=== PATIENT | male | born 1955 | race Caucasian/White ===

== ENCOUNTER 2016-08-09 10:33 | Inpatient (IN) | payer OTHER ==
[2016-08-09] MEDS ORDERED: DECADRON IV ONE (10:49)
[2016-08-09] MEDS ORDERED: DUONEB (A & A) INH ONE (10:49)
--- NOTE | 2016-08-09 11:08 | PROVIDER DOCUMENTATION ---
HPI-Respiratory General - General Chief Complaint: Shortness of Breath Stated Complaint: WEAKNESS/SOB/COPD Time Seen by Provider: 08/09/16 10:40 Source: patient, family (daughter) Allergies/Adverse Reactions: Patient Allergies Allergy/AdvReac Type Severity Reaction Status Date / Time morphine AdvReac Unknown Unknown Verified 08/04/16 09:26 Home Medications: Albuterol Sulfate 2.5 mg INH PRN PRN 08/06/15 Budesonide/Formoterol Inhaler [Symbicort 160/4.5 Microgm Inhaler] 1 puff INH PRN PRN 08/06/15 Esomeprazole [Nexium] 40 mg PO DAILY 08/06/15 Gabapentin 300 mg PO TID PRN 08/06/15 Hydrocodone/Acetaminophen [[place] 10-325 Tablet] 1 tab PO Q4HR 08/06/15 ROSUVAstatin [Crestor] 10 mg PO QHS 08/06/15 Tramadol [Ultram] 50 mg PO DAILY 08/06/15 Valsartan [Diovan] 40 mg PO DAILY 08/06/15 Lorazepam [Ativan] 1 mg PO BID 11/19/15 Citalopram [Celexa] 20 mg PO DAILY 06/29/16 Nebivolol [Bystolic] 5 mg PO DAILY 06/29/16 - History of Present Illness-Resp Nature of Presenting Problem: Pt is 61 y/o M presents to the ED with SOB and generalized weakness. Pt's daughter states that Pt was admitted Aug 04 for lesions on the brain. Pt's daughter states Pt has been very weak and confused lately. Pt's daughter states Pt has an appointment in [place] August 16 for lesions on brain. Pt's refused pain meds. Quality of Pain: reports: other (weakness) Severity in ED: reports: mild Onset/Duration: reports: just prior to arrival Timing: reports: still present, intermittent Exposure: reports: unknown cause Cough Quality/Degree: reports: moderate Current Respiratory Medication Therapy: Initiated see nurses note Modifying Factors: improves with: nothing Associated Symptoms: reports: shortness of breath, wheezing. denies: cough, fever/chills, headache, hurts to breathe, nasal congestion Similar Symptoms Previously?: Yes Recently seen or treated by another doctor?: Yes Review of Systems - Adult - REVIEW OF SYSTEMS - ADULT Constitutional: denies: chills, fever Eyes: denies: blurred vision, double vision Ears, Nose, Mouth & Throat: denies: ear pain, nose pain, throat pain Cardiovascular: denies: chest pain, heart murmur, irregular heart rate Respiratory: reports: shortness of breath, wheezing. denies: cough Gastrointestinal: denies: abdominal pain, diarrhea, nausea, vomiting Genitourinary: denies: dysuria, hematuria Musculoskeletal: denies: bone pain, joint pain, neck pain Integumentary: denies: hives, itching Neurological: denies: dizziness/vertigo, headache/migraines Psychiatric: reports: no symptoms reported Endocrine: reports: no symptoms reported Hematologic/Lymphatic: reports: no symptoms reported Allergic/Immunologic: reports: no symptoms reported All Other Systems: Reviewed and Negative Past History - Adult - PAST MEDICAL HISTORY-ADULT Review of Records: reports: Nursing Assessment Review, Medications Reviewed, Social history reviewed & non-contributory. Major Childhood Illnesses: reports: denies history Cardiovascular: reports: cardiac disease, CHF, HTN, hyperlipidemia Respiratory: reports: asthma, COPD Gastrointestinal: reports: GERD Obstetrical/Gynecological: reports: denies history Genitourinary: reports: denies history Musculoskeletal: reports: chronic pain (back and hip) Neurological: reports: denies history Psychiatric: reports: anxiety Endocrine/Immune: reports: denies history Other Conditions: reports: denies history - PRIOR SURGERIES/PROCEDURES Surgical/Procedure History: reports: hernia repair - IMMUNIZATION STATUS Childhood Immunizations: See Nurse Assessment Flu Vaccine: See Nurse Assessment - FAMILY HISTORY Family History: reviewed, not pertinent - SOCIAL HISTORY Smoking: cigarettes, greater than 1 pack/day Provider spent 3-5 mins advising pt. on dangers of tobacco.: Discussed manners to quit use, and f/u contacts for add'l counseling. Substance Use: denies Living Situation: family Physical Exam-General - PHYSICAL EXAM-ADULT Initial Vital Signs Reviewed: Yes - CONSTITUTIONAL General Appearance: appears well, alert, no apparent distress, slow to respond - EYES Eyes: PERRL/EOMI, pink conjunctivae - HEAD, EARS, NOSE, MOUTH & THROAT HENMT: normocephalic/atraumatic, moist mucous membranes, normal ENT inspection - NECK Neck: non-tender, full range of motion, supple, normal inspection - RESPIRATORY Respiratory: chest non-tender, lungs clear, normal breath sounds, wheezing - CARDIOVASCULAR Cardiovascular: normal peripheral pulses, regular rate, rhythm, no edema - GASTROINTESTINAL (ABDOMEN) Abdominal Exam: normal bowel sounds, non tender, soft - LYMPHATIC Lymphatic: no adenopathy - MUSCULOSKELETAL Back Exam: normal inspection, no CVA tenderness, no vertebral tenderness Extremity: normal range of motion, non-tender, normal gait - SKIN Integumentary: normal color, normal turgor, warm/dry - NEUROLOGIC Neurologic: peg driver II-XII nml as tested, grossly normal, no motor/sensory deficits - PSYCHIATRIC Psych/Mental Status: normal mood/affect, normal thought content, normal thought process, oriented x 3 Progress - PLAN OF CARE/RESULTS Progress/Plan/Lab Results: Orders Category Date Time Status IV Insertion ORDERED Care 08/09/16 10:49 Completed HEAD W/WO CONTRAST [CT] Stat Exams 08/09/16 10:49 Ordered CBC WITH DIFF [HEME] Stat Lab 08/09/16 10:50 Results COMPREHENSIVE METABOLIC PANEL [CHEM] Stat Lab 08/09/16 10:[address] W/POSS RFLX CULT [URINALYSIS] Stat Lab 08/09/16 10:49 Uncollected Albuterol 2.5MG/Ipratrop 0.5MG [Duoneb (A & A)] Med 08/09/16 10:49 Discontinued 9 ml INH NOW ONE Dexamethasone [Decadron] Med 08/09/16 10:49 Discontinued 4 mg IV NOW ONE Aerosol Treatments Routine Oth 08/09/16 10:49 Active Aerosol Treatments Stat Oth 08/09/16 10:49 Active Vital Signs - 24 hr 08/09/16 10:55 Temperature 98.4 F Pulse Rate 73 Respiratory 17 Rate Blood Pressure 141/81 O2 Sat by Pulse 95 Oximetry Laboratory Tests 08/09/16 08/09/16 10:50 10:50 WBC 26.08 H RBC 4.53 L Hgb 13.3 L Hct 40.4 L MCV 89.2 MCH 29.4 MCHC 32.9 L RDW Std Deviation 14.6 H Plt Count 509 H MPV 8.8 Immature Gran % (Auto) 0.5 Neut % (Auto) 89.9 H Lymph % (Auto) 3.3 L Phelps % (Auto) 6.3 Eos % (Auto) 0.0 Baso % (Auto) 0.0 Immature Gran # (Auto) 0.12 H Neut # 23.46 H Lymph # 0.85 L Phelps # 1.63 H Eos # 0.01 Baso # 0.01 Segmented Neutrophils 93 H Lymphocytes 3 L Monocytes 4 Sodium 136 Potassium 3.4 L Chloride 96 L Carbon Dioxide 32 Anion Gap 9 BUN 16 Creatinine 0.6 L Estimated GFR/1.73 m2 > 60 BUN/Creatinine Ratio 27 Glucose 132 H Calculated Osmolality 275 Calcium 9.5 Total Bilirubin 0.20 AST 8 L ALT 19 Alkaline Phosphatase 72 Total Protein 6.8 Albumin 3.6 Globulin 3.0 Albumin/Globulin Ratio 1.0 - CT/MRI 1 CT Study: Head Impression: Abnormal (multiple subtle mass lesions with substanial surounding edema, most prominent on R; some increase in edema on R compared to 08/04/16; considerations include metastases, multifocal glioma, and possibly unusual infectious process; no hemorrhage.) - CONSULTS/PCP/HOSPITALIST Notification #1 *Consult/PCP/Hospitalist*: Dr. Giraldo Time Discussed: 13:32 (Dr. Giraldo states admit to [facility], treat COPD and do a cancer workup) Reason/Comments: Dr. Bell consulted with Dr. Giraldo about admit of Pt Consult Disposition: Admit #2 Consult: Dr. Kidd Time Discussed: 13:38 (Dr. Kidd accepted admit. ) Reason/Comments: Dr. Bell consults with Dr. Kidd about admit of Pt. Departure - Departure Time of Disposition Order: 13:51 DIAGNOSIS: Altered mental status Qualifiers: Altered mental status type: unspecified Qualified Code(s): R41.82 - Altered mental status, unspecified Disposition: HOME 01 Certified Medical Emergency: Emergent Condition: Stable Additional Instructions: ED Follow Up Instructions: You have been treated by a care provider in the Emergency Department. These instructions are being provided to you so you can have an understanding of how to care for yourself upon discharge. Upon discharge from the Emergency Department, you are responsible for making arrangements for follow-up care by a physician of your choice. Take all prescribed medications as directed. Return to the Emergency Department immediately for any new or worsening symptoms. You may call the Physician Referral phone number at [phone] to obtain a list of Physicians who are taking new patients. Referrals: Rafa Mcintosh MD [Primary Care Provider] - Attestation - Scribe Verification/Attestation Scribe:: Porsha Viveros Acting as Scribe for:: Kristin Bell Scribe documention review:: This chart was documented by a scribe and accurately reflects the service the provider performed and the decisions made by the provider.
[2016-08-09 11:27] LABS: AGAP 9; ALBUMIN 3.6 g/dL (3.5-5.0); ALKALINE PHOSPHATASE 72 U/L (32-122); BUN 16 mg/dL (8-22); CALCIUM 9.5 mg/dL (8.8-10.2); CHLORIDE 96 mmol/L (98-107); COSMO 275; GOT 8 U/L (10-34); GPT 19 U/L (10-44); POTASSIUM 3.4 mmol/L (3.5-5.1); SODIUM 136 mmol/L (136-145); TCO2 32 mmol/L (25-35); TOTAL PROTEIN 6.8 g/dL (6.3-8.3)
[2016-08-09 11:54] LABS: EOS# 0.01 X1000 (0.0-0.7); HEMATOCRIT 40.4 % (42.0-52.0); HEMOGLOBIN 13.3 g/dL (14.0-18.0); IMM GRAN# 0.12 X1000 (0.0-0.04); IMM GRAN% 0.5 % (0.0-0.5); LYMPH# 0.85 X1000 (1.2-3.4); LYMPH% 3.3 % (20.5-51.1); MANUAL DIFF NEEDED? YES; MCH 29.4 PG (27-31); MCHC 32.9 g/dL (33-37); MCV 89.2 FL (81-99); MONO# 1.63 X1000 (0.11-0.59); MONO% 6.3 % (1.7-9.3); MPV 8.8 FL (7.4-10.4); NEUT% 89.9 % (42.2-75.2); PLT 509 X1000 (130-400); RBC 4.53 XMIL (4.7-6.1)
[2016-08-09 11:56] LABS: LYMPHS 3 % (21-51); MONO 4 % (1-9)
--- NOTE | 2016-08-09 13:14 | Diag Imaging Result Document ---
PROCEDURE NAME: HEAD W/WO CONTRAST - 08/09/2016 CT HEAD WITHOUT AND WITH CONTRAST: TECHNIQUE: Images are obtained prior to and following intravenous contrast administration. A dose reduction protocol was used. Compared with 07/25/2016. FINDINGS: There are multiple subtle mass lesions with faint ring enhancement with associated edema. These are most prominent in the right cerebrum, and there is substantially more edema on the right than on the left. There has been some increase in the amount of edema on the right with increased sulcal effacement and increased mass effect on the right lateral ventricle. There is no substantial midline shift identified at this time. There is no substantial effacement of basilar cisterns at this time, although there is possibly some mild mass effect on the right side of the suprasellar cistern. Considerations include metastatic disease, multifocal gliomas, and possibly unusual infectious process. There is no evidence of hemorrhage. There is no hydrocephalus. IMPRESSION: Multiple subtle mass lesions with subtle ring enhancement and substantial associated edema, most numerous on the right. There has been some increase in edema on the right compared with the 08/04/2016 exam. Considerations include metastatic disease, multifocal gliomas, and possibly unusual infectious process. [facility]
[2016-08-09] MEDS ORDERED: VANCOMYCIN 1 GM/NS 250 ML IV ONE (13:17)
[2016-08-09] MEDS ORDERED: GENTAMICIN 80 MG/NS 50 ML IV ONE (13:17)
[2016-08-09 13:34] LABS: URINE CULTURE PL NEEDED? NO; URINE SOURCE CLEAN CATCH
[2016-08-09 13:44] LABS: BILIRUBIN URINE NEGATIVE (NEGATIVE); BLOOD URINE 1+ (NEGATIVE); CLARITY CLEAR (CLEAR); COLOR YELLOW; GLUCOSE URINE NEGATIVE (NEGATIVE); LEUKOCYTES URINE TRACE (NEGATIVE); NITRITE URINE NEGATIVE (NEGATIVE); PROTEIN URINE TRACE mg/dL (NEGATIVE); UROBILINOGEN URINE NORMAL
[2016-08-09 13:45] LABS: URINE EPITHELIAL CELLS <10 /HPF (<10); URINE RBC <10 /HPF (<10); URINE WBC <10 /HPF (<10)
[2016-08-09] MEDS ORDERED: DECADRON IV SCH (13:45)
--- NOTE | 2016-08-09 14:13 | Diag Imaging Result Document ---
PROCEDURE NAME: CHEST-PORTABLE - 08/09/2016 PORTABLE CHEST X-RAY: COMPARISON: 08/04/2016. FINDINGS: Stable mild cardiomegaly. Stable right perihilar infiltrate. There is slight worsening in the right lower lobe infiltrate. The left lung remains grossly clear. IMPRESSION: Slight worsening in the right basilar infiltrate.
[2016-08-09] MEDS ORDERED: NORCO-10 PO ONE (14:27)
--- NOTE | 2016-08-09 16:12 | Diag Imaging Result Document ---
PROCEDURE NAME: MRI BRAIN W W/O CONTRAST - 08/09/2016 MRI BRAIN WITH AND WITHOUT: TECHNIQUE: Axial, sagittal, and coronal images were obtained in multiple sequences. These were followed by postcontrast axial and coronal images. COMPARISON: Comparison is made to recent brain CTs. FINDINGS: There are multiple large bilateral peripheral enhancing masses. The largest is in the right occipital lobe measuring 5 cm in diameter. Each of these has a moderate amount of surrounding edema. There is effacement of the sulci in the right cerebral hemisphere. There is only mild midline shift from the right to the left in the mid line of approximately 5 to 6 mm. There is compression upon the right lateral ventricle. No lesion within the brain stem or cerebellum. No epidural or subdural fluid collection. IMPRESSION: Multiple peripherally enhancing masses bilaterally although these are more numerous on the right most likely representing metastases. Other less likely possibilities would be multiple gliomas or an infectious process. [facility]
[2016-08-09] MEDS: DECADRON IV SCH (17:25)
[2016-08-09] MEDS: DILAUDID IV PRN ×2 (17:25→22:41)
[2016-08-09] MEDS ORDERED: COMBIVENT RESPIMAT INHALER INH PRN (19:17)
[2016-08-09] MEDS ORDERED: ZOFRAN IV PRN (19:19)
[2016-08-09] MEDS: DUONEB (A & A) INH SCH ×2 (19:42→22:47)
--- NOTE | 2016-08-09 19:43 | HISTORY AND PHYSICAL ---
PRIMARY CARE PHYSICIAN: Rafa Mcintosh MD CHIEF COMPLAINT: Headache, dizziness, and unsteady gait. HISTORY OF PRESENT ILLNESS: This is a 61-year-old male with a prior history of COPD, hypertension, and tobacco use, who presented to the emergency room complaining of increasing headache unrelieved by home pain medications, unsteady gait, change in vision. He was evaluated in the emergency room on 08/04/2016 and at that time a CT of the head was performed, which revealed numerous brain masses compatible with metastasis with no midline shift. He was discharged from the emergency room with an appointment to follow up with [facility] in [place], but over the last 48 hours he has had a significant change in gait, as well as coordination, having difficulty even feeding himself. His vision has changed. The sister states that he can see large objects, but that he is tripping over smaller things. He has developed a headache that has been present for about 2 days now, and he has become light sensitive and started to have some nausea. A CT of the head in the emergency room revealed multiple subtle mass lesions with subtle ring enhancement and substantial associated edema, most numerous on the right, with an increase in the edema compared with the 08/04/2016 exam. MRI of the brain revealed multiple peripherally enhancing masses bilaterally, more numerous on the right, with approximately 5 to 6 mm shift from the right to the left in the midline with compression upon the right lateral ventricle. There is no lesion within the brainstem or cerebellum. No epidural or subdural fluid collection. He is being admitted for further evaluation and treatment. PAST MEDICAL HISTORY: COPD, hypertension, gastroesophageal reflux disease, congestive heart failure, hyperlipidemia, chronic back pain, chronic hip pain, abdominal hernia, and metastatic brain lesions. PAST SURGICAL HISTORY: Abdominal hernia repair and colonoscopy. SOCIAL HISTORY: He is disabled due to lung disease. He does live alone. He has sisters that live close by. ALLERGIES: Morphine. HOME MEDICATIONS: A list will be obtained. REVIEW OF SYSTEMS: A 14-point review systems is discussed with patient and the sister with pertinent positives stated in the HPI. He denies chest pain, palpitations, syncope, vomiting, diarrhea, constipation, black or bloody vomitus, black or bloody stools, hematuria, dysuria, frequency, urgency. PHYSICAL EXAMINATION: GENERAL: This is a 61-year-old male who is lying in the bed. He does appear older than his stated age. VITAL SIGNS: Blood pressure is 150/61 with a heart rate of 84, respirations are 20, temperature is 98.2 degrees orally with oxygen saturation of 96% to 97% on 2 liters nasal cannula. HEENT: Head is normocephalic, atraumatic. Pupils equal, round, react to light. EOMs are intact. Sclerae anicteric. Mucous membranes are dry. NECK: Supple. Trachea midline. CARDIOVASCULAR: Regular rate and rhythm. S1 and S2 appreciated. PULMONARY: He does have wheezing scattered throughout with no increased work of breathing noted. GASTROINTESTINAL: The abdomen is soft, nontender, nondistended with bowel sounds in all 4 quadrants. BACK: No CVAT. No spine tenderness. MUSCULOSKELETAL: Good range of motion of the joints. SKIN: Warm and dry. NEUROLOGIC: He is alert and oriented. He is lying in a dark room at present due to a headache. Speech is clear. [employer] are equal. He does have 4/5 muscle strength x4. LABORATORIES: WBC is 26.08 with hemoglobin 13.3, hematocrit 40.4, and platelets of 509,000. Sodium is 136, potassium 3.4, BUN 16, creatinine 0.6 with a glucose of 132. MRI and CT of the head, as stated in the HPI. ASSESSMENT AND PLAN: 1. Metastatic brain cancer with unknown primary source. The patient's symptoms have progressed significantly over the last week as stated in the History of Present Illness. We did talk to Dr. Carli Giraldo. He will be admitted. We will give IV pain and nausea control. We will order CT abdomen, chest, abdomen and pelvis with contrast for staging. He will be seen by Dr. Giraldo tomorrow. We will consult Dr. Aga Tam for radiation. 2. Chronic obstructive pulmonary disease. We will identify the patient's home medicines and continue. We will give DuoNeb treatments p.r.n. 3. Gastroesophageal reflux disease. Give Protonix. 4. Congestive heart failure. 5. Hyperlipidemia. 6. Chronic back pain. 7. Chronic hip pain. 8. We will identify his home medications and continue as appropriate. Of note, the patient does have home oxygen at 1 liter. Further treatments pending hospital course. Dictated by NAOMIE Guerra for Fletcher Kidd MD based on tobacco hx and evidence of persistent rll infiltrate, there is a concern this is a primary lung tumor, were are in the process of working up his primary tumor site and biopsy sites; will pursue bone scan as well; further orders per workup as above described [facility]
[2016-08-09] MEDS ORDERED: NEURONTIN PO PRN (20:54)
[2016-08-09] MEDS: SYMBICORT 160/4.5 MICROGM INHALER INH SCH (21:06)
[2016-08-09] MEDS: PROTONIX IV SCH (21:30)
[2016-08-09] MEDS: KEPPRA PO SCH (21:30)
[2016-08-10] MEDS: PERCOCET-5 PO PRN ×3 (00:12→19:53)
[2016-08-10] MEDS: DECADRON IV SCH ×5 (00:14→22:08)
[2016-08-10] MEDS: DUONEB (A & A) INH SCH ×3 (03:06→12:00)
[2016-08-10 06:01] LABS: HEMATOCRIT 38.2 % (42.0-52.0); HEMOGLOBIN 12.5 g/dL (14.0-18.0); MCH 29.4 PG (27-31); MCHC 32.7 g/dL (33-37); MCV 89.9 FL (81-99); MPV 8.6 FL (7.4-10.4); RBC 4.25 XMIL (4.7-6.1)
[2016-08-10 06:09] LABS: AGAP 9; BUN 15 mg/dL (8-22); CALCIUM 9.3 mg/dL (8.8-10.2); CHLORIDE 95 mmol/L (98-107); COSMO 272; POTASSIUM 3.6 mmol/L (3.5-5.1); SODIUM 135 mmol/L (136-145); TCO2 31 mmol/L (25-35)
[2016-08-10] MEDS: SYMBICORT 160/4.5 MICROGM INHALER INH SCH (07:45)
[2016-08-10] MEDS: DILAUDID IV PRN ×3 (08:26→22:02)
[2016-08-10] MEDS: NEXIUM PO SCH (08:27)
[2016-08-10] MEDS: KEPPRA PO SCH ×2 (08:27→20:00)
--- NOTE | 2016-08-10 08:57 | Diag Imaging Result Document ---
PROCEDURE NAME: THORAX/ABDOMEN/PELVIS - 08/09/2016 CT CHEST WITH INTRAVENOUS CONTRAST: A CT dose reduction protocol was used. COMPARISON: 08/08/2015. FINDINGS: There is a 2.3 cm perihilar right middle lobe lung mass. There is some mucus plugging of the right middle lobe bronchi. There is ill-defined infiltrate in the right lower lobe along with bronchial wall thickening compatible with bronchitis and bronchopneumonia. There is also some bronchitis on the left side. There is a left perihilar nodule in the upper lobe measuring 12 mm. No significant adenopathy. Heart and great vessels are normal. Bony structures are intact. IMPRESSION: 1. Suspicious bilateral perihilar pulmonary nodules. 2. Significant bronchitis. 3. Bronchopneumonia in the right lower lobe. CT ABDOMEN AND PELVIS WITH INTRAVENOUS CONTRAST: A CT dose reduction protocol was used. COMPARISON: None. FINDINGS: There are cysts in the right kidney and spleen. The liver, gallbladder, pancreas, and adrenals are normal. No bowel obstruction or inflammation. Urinary bladder, prostate, and rectum are normal. Bony structures are intact. IMPRESSION: No acute abnormality. [facility]
[2016-08-10] MEDS: ZOSYN 3.375 GM/NS 50 ML IV SCH ×3 (10:32→22:09)
[2016-08-10] MEDS ORDERED: NS 1,000 ML ONE (10:34)
[2016-08-10] MEDS: MUCOMYST 20% INH SCH (12:00)
[2016-08-10] MEDS ORDERED: DUONEB (A & A) INH PRN (13:20)
[2016-08-10] MEDS ORDERED: DUONEB (A & A) INH ONE (13:30)
--- NOTE | 2016-08-10 15:35 | Diag Imaging Result Document ---
PROCEDURE NAME: BONE SCAN, TOTAL BODY - 08/10/2016 WHOLE BODY BONE SCAN: COMPARISON: None. FINDINGS: 26.9 mCi of MDP was administered. There is no abnormal uptake throughout the skeleton or soft tissues. IMPRESSION: No evidence of skeletal metastatic disease.
--- NOTE | 2016-08-10 16:18 | PROGRESS NOTE ---
DATE: 08/10/2016 SUBJECTIVE: The patient is still confused, still very agitated. He does respond to questions but he has got significant brain pathology. OBJECTIVE: Blood pressure was 163/76, heart rate 63, respiratory rate 20, temperature 97.6 degrees, 99% on room air.Cardiovascular: Regular rate and rhythm. Pulmonary: Bilateral breath sounds. Clear to auscultation. GI: Soft, nontender, nondistended. Bowel sounds are positive. Extremities: No clubbing or cyanosis. Lymphatics: No peripheral edema. Neurological: Nonfocal. LABORATORY DATA: White count is still elevated 21,000. Chemistries look okay. CA is only 2.1. His CT scan though shows a right perihilar mass with pneumonia surrounding. MRI shows significant metastatic lesions in the brain in the frontal process. Body scan was negative for any acute pathology. PROBLEMS: 1. Central nervous system metastases. We will continue high-dose steroids. Dr. Giraldo has increased the dose. I think that is very reasonable and we are pursuing urgent XRT as soon as we can get it set up. He has been evaluated and he is being transferred to [facility] for closer management. 2. Postobstructive pneumonia. Will continue Zosyn and breathing treatments and follow. 3. Primary lung cancer. We will pursue a biopsy as soon as we are able to get everything together which will likely be Saturday at this point.
--- NOTE | 2016-08-10 17:21 | CONSULTATION ---
DATE OF CONSULTATION: 08/10/2016 DICTATED BY: Hasmukh Griggs, radiology oncology physician covering for Dr. Tam, locum coverage. REFERRING PHYSICIAN: Ricci Kidd MD OTHER PHYSICIANS: Medical oncologist, Carli Giraldo. CHIEF COMPLAINT: Headache and confusion. HISTORY OF PRESENT ILLNESS: Mr. Pruitt is a 61-year-old white male with history of smoking, COPD, coronary artery disease, who is currently admitted to hospitalist service after presenting to the emergency department on 08/09 with worsening headache, confusion, and weakness. He initially presented to the ED on 08/04 with a 1 week history of mild headache and confusion. A CT scan of the head at that time demonstrated multiple lesions in the brain concerning for metastatic disease. He also had a chest x-ray that showed nodularity in the right hilum. He was discharged from the ED with prescription for oral dexamethasone and was set up with appointments to see medical oncology with an MRI of the brain and PET scan. Unfortunately, he did not make it his visits after developing worsening confusion and headache over the subsequent week. He also developed new photophobia and worsening weakness. He particularly notes weakness in his right leg. He also notes occasional visual changes. He denies falls, loss of consciousness, or seizures. He does live by himself and has had more difficulty with ambulation. He denies nausea or emesis. His sister and brother were present for the history and corroborate these findings. He is also, of note, on home oxygen for advanced COPD and has noted some mild worsening of his breathing with dyspnea on minimal exertion. There is a cough productive of blood tinged sputum over the past few weeks and has also noted worsening fatigue, loss of energy and appetite with an associated 10-15 pounds weight loss over the past month. PAST MEDICAL HISTORY: COPD on home oxygen 1-2 liters, coronary artery disease, hypertension, depression, hyperlipidemia, chronic pain. PAST SURGICAL HISTORY: He has had repair of an abdominal hernia and a colonoscopy. ALLERGIES: Morphine. HOME MEDICATIONS: Include albuterol inhaler, Symbicort inhaler, Nexium 40 mg p.o. daily, gabapentin 300 mg p.o. t.i.d., [place] 10/325 q.4 p.r.n., rosuvastatin 10 mg q.h.s., tramadol 50 mg daily, valsartan 40 mg daily, lorazepam 1 mg p.o. b.i.d., citalopram 20 mg daily, nebivolol 5 mg daily. He also reports taking dexamethasone since his discharge from the ED 2 weeks ago or a week ago but does not know the exact dose or frequency. FAMILY HISTORY: Both parents have history of lung cancer and are , otherwise no cancer in his family. SOCIAL HISTORY: He lives by himself in [place]. He is currently disabled due to his COPD. He was previously able to care for himself at home. He is a current smoker 1 pack per day. REVIEW OF SYSTEMS: A 14-point review of systems was performed with pertinent positives outlined in HPI. Review of systems was otherwise negative. PHYSICAL EXAMINATION: GENERAL: The patient is awake, alert to person and place. Lies in bed comfortably. VITAL SIGNS ON ADMISSION: Blood pressure 158/61. Heart rate 84. Respirations 20. Temperature 98.2 degrees by mouth. Oxygen saturation 96% on 2 liters by nasal cannula. HEENT: Normocephalic and atraumatic. Anicteric sclerae. Mucous membranes dry. No particular oropharyngeal erythema or masses. Tongue protrudes normally with normal palate elevation. Pupils are equal bilaterally, reactive to light. Extraocular movements will be outlined in the neurological exam. NECK: Supple, nontender. No palpable lymphadenopathy. Trachea is midline. CARDIOVASCULAR: Regular rate and rhythm with normal S1, S2, no murmurs. No significant lower extremity edema. PULMONARY: Diminished breath sounds bilaterally with scattered wheezes throughout. Breathing is nonlabored. No crackles. NEUROLOGICAL: Extraocular movements: The patient has a left lateral gaze palsy, is unable to gaze to the left, there is no nystagmus. He also has some difficulty with upper gaze but is able to perform it intermittently. Cranial nerves are otherwise intact. Exam is somewhat limited but the patient reports grossly normal visual hogue and visual acuity. Motor: The patient appears to have some left-sided neglect. Although with prompting he is able to raise both arms with 3/5 strength bilaterally and symmetric. Lower extremities also have 3/5 strength symmetric. Sensory within normal limits. Cerebellar: The patient has difficulty performing. Nose to finger test: He does demonstrate loss of coordination with extremity movements. IMAGING: All pertinent imaging from this and his previous hospitalizations were reviewed including a CT scan of the head from 08/09/2016 showing multiple enhancing lesions with substantial edema in both cerebral hemispheres. MRI of the brain from 08/09/2016 shows multiple large enhancing masses, largest in the right occipital lobe measuring 5 cm with moderate surrounding edema, effacement of the sulci with mild midline shift. Last is a CT scan of the chest, abdomen, and pelvis from 08/09/2016 which demonstrates a 2.3 cm right middle lobe lung mass with associated bronchial wall thickening and a right lower lobe infiltrate, there is also left perihilar nodularity measuring up to 1.2 cm with no significant lymphadenopathy. ASSESSMENT AND PLAN: Mr. Pruitt is a 61-year-old white male who is currently admitted to the hospital with significant neurologic decline. He has a known history of brain lesions concerning for metastatic disease. Further workup during this hospitalization including an MRI reveals multiple bilateral brain lesions. I reviewed the MRI and note multiple lesions bilaterally particularly a large lesion in the right occipital lobe and 2 very large bifrontal lesions, each with significant surrounding edema and mass effect. There also is somewhat concerning enhancement along meninges. A report of the CT scan of the chest is all that was available for review, but after discussion with the hospitalist team and his oncologist, Dr. Carli Giraldo, we felt that this most likely represented metastatic lung cancer. The patient has not been able to undergo further diagnostic workup for a tissue diagnosis at this point, but given concern of his rapid neurologic decline and the consensus of a most likely diagnosis of lung cancer we discussed with the patient the potential for proceeding with radiation therapy to his brain. I discussed the risks, benefits, side effects of radiation including potential for worsening headache or nausea, darkening or skin irritation, loss of hair. I also discussed this with his sister and brother who are present in his hospital room. We discussed the rationale for the radiation which includes the potential for controlling his intracranial disease and hopefully decreasing his symptoms. We would most likely delivery radiation daily over the course of roughly 2 weeks. After our discussion we agreed to the following plan: 1. The inpatient team has decided to transfer the patient to [facility] for further care. He will continue to be followed by Dr. Giraldo, medical oncology, and will be continued on IV dexamethasone. 2. We recommend increasing dexamethasone, if possible, to 10 mg 4 times a day to possibly stabilize neurological symptoms. 3. We will proceed with radiation treatment planning in first radiation treatment this afternoon. Also plan for second treatment on 08/11/2016.
[2016-08-10] MEDS: PROTONIX IV SCH (22:08)
[2016-08-10] MEDS: SODIUM CHLORIDE 0.9% INJ SCH (22:08)
[2016-08-10 22:29] LABS: URINE CULTURE NEEDED? NO; URINE SOURCE CATH
[2016-08-10 22:30] LABS: BILIRUBIN URINE NEGATIVE (NEGATIVE); BLOOD URINE NEGATIVE (NEGATIVE); COLOR YELLOW; GLUCOSE URINE TRACE mg/dL (NEGATIVE); LEUKOCYTES URINE NEGATIVE (NEGATIVE); NITRITE URINE NEGATIVE (NEGATIVE); PROTEIN URINE TRACE mg/dL (NEGATIVE); SP GRAVITY URINE 1.028; TURBIDITY URINE CLEAR (CLEAR); URINE MICRO REVIEW NEEDED? NO; UROBILINOGEN URINE NORMAL (NORMAL)
[2016-08-10 22:32] LABS: UR EPITHELIAL CELLS <10 /HPF (<10); URINE BACTERIA NEGATIVE /HPF; URINE RBC <10 /HPF (<10); URINE WBC <10 /HPF (<10)
[2016-08-11] MEDS: DILAUDID IV PRN ×5 (00:58→21:28)
[2016-08-11] MEDS: DECADRON IV SCH ×4 (04:47→21:32)
[2016-08-11] MEDS: ZOSYN 3.375 GM/NS 50 ML IV SCH ×4 (04:47→21:33)
[2016-08-11] MEDS: DUONEB (A & A) INH SCH ×8 (04:55→23:21)
[2016-08-11] MEDS: MUCOMYST 20% INH SCH ×3 (04:58→19:47)
[2016-08-11] MEDS: SYMBICORT 160/4.5 MICROGM INHALER INH SCH ×3 (04:58→19:47)
[2016-08-11 06:31] LABS: HEMATOCRIT 38.7 % (42.0-52.0); HEMOGLOBIN 12.7 g/dL (14.0-18.0); MCH 29.8 PG (27-31); MCHC 32.8 g/dL (33-37); MCV 90.8 FL (81-99); MPV 8.6 FL (7.4-10.4); RBC 4.26 XMIL (4.7-6.1)
[2016-08-11 06:50] LABS: AGAP 12; BUN 23 mg/dL (8-22); CHLORIDE 98 mmol/L (98-107); COSMO 283; SODIUM 139 mmol/L (136-145); TCO2 29 mmol/L (25-35)
[2016-08-11] MEDS: NEXIUM PO SCH (09:51)
[2016-08-11] MEDS: KEPPRA PO SCH ×2 (09:51→21:33)
--- NOTE | 2016-08-11 20:35 | PROGRESS NOTE ---
DATE: 08/11/2016 OBJECTIVE: Vital signs: Blood pressure 114/54, heart rate 73, respiratory 22, temperature 98.2 degrees, 94% saturation on 2 L. Cardiovascular: Regular rate and rhythm. Pulmonary: Bilateral breath sounds clear to auscultation. GI: Soft, nontender, nondistended. LABORATORY DATA: White count 13, hemoglobin and hematocrit 12 and 38, platelets of . Chemistry within normal limits. PROBLEMS: 1. Central nervous system metastases. He seems to be doing better after radiation therapy and higher dose steroids. 2. Lung mass, planning for CT-guided biopsy in the next couple days. 3. Postobstructive pneumonia. Continue antibiotics, Mucomyst, breathing treatment and follow. DISPOSITION: Pending resolution of his issues and will continue physical therapy.
[2016-08-11] MEDS: SODIUM CHLORIDE 0.9% INJ SCH (21:32)
[2016-08-11] MEDS: PROTONIX IV SCH (21:33)
[2016-08-12] MEDS: DILAUDID IV PRN (00:27)
[2016-08-12] MEDS: DUONEB (A & A) INH SCH ×6 (03:35→23:27)
[2016-08-12] MEDS: DECADRON IV SCH ×4 (03:38→22:18)
[2016-08-12] MEDS: ZOSYN 3.375 GM/NS 50 ML IV SCH ×4 (03:38→22:16)
[2016-08-12 07:13] LABS: AGAP 13; BUN 24 mg/dL (8-22); CALCIUM 8.7 mg/dL (8.8-10.2); CHLORIDE 95 mmol/L (98-107); COSMO 281; POTASSIUM 3.9 mmol/L (3.5-5.1); SODIUM 137 mmol/L (136-145); TCO2 29 mmol/L (25-35)
[2016-08-12] MEDS: MUCOMYST 20% INH SCH ×2 (07:31→19:55)
[2016-08-12] MEDS: SYMBICORT 160/4.5 MICROGM INHALER INH SCH ×2 (07:31→19:55)
[2016-08-12 07:54] LABS: BASO% 0.1 % (0.0-0.8); HEMATOCRIT 39.5 % (42.0-52.0); HEMOGLOBIN 13.2 g/dL (14.0-18.0); IMM GRAN# 0.17 X1000 (0.0-0.04); IMM GRAN% 1.2 % (0.0-0.5); LYMPH# 0.69 X1000 (1.2-3.4); LYMPH% 4.8 % (20.5-51.1); MANUAL DIFF NEEDED? YES; MCH 29.5 PG (27-31); MCHC 33.4 g/dL (33-37); MCV 88.4 FL (81-99); MONO# 0.76 X1000 (0.11-0.59); MONO% 5.3 % (1.7-9.3); MPV 8.6 FL (7.4-10.4); NEUT% 88.6 % (42.2-75.2); PLT 496 X1000 (130-400); RBC 4.47 XMIL (4.7-6.1)
[2016-08-12 08:01] LABS: LYMPHS 6 % (21-51); MONO 2 % (1-9)
[2016-08-12] MEDS: PERCOCET-5 PO PRN ×4 (08:29→22:11)
[2016-08-12] MEDS: NEXIUM PO SCH (08:30)
[2016-08-12] MEDS: KEPPRA PO SCH ×2 (08:30→22:17)
--- NOTE | 2016-08-12 22:03 | PROGRESS NOTE ---
DATE: 08/12/2016 SUBJECTIVE: Patient has no focal complaints. Every day his mentation is improving. His neurological status is improving, just overall much improved OBJECTIVE: Vital signs: Blood pressure is 133/58, heart rate 95, respiratory rate 20, temperature 98.7 degrees, 97% on 2 L. Cardiovascular: Regular rate and rhythm. Pulmonary: Bilateral breath sounds. Clear to auscultation. GI: Soft, nontender, nondistended. Bowel sounds are positive. Extremities: No clubbing or cyanosis. Lymphatics: No peripheral edema. Neurological: Nonfocal. LABORATORY DATA: Normal basic, normal white count 14,000 still. PROBLEM LIST: 1. Central nervous system metastases. He is getting steroids and XRT. I greatly appreciate radiation oncology's urgent treatment. Continue treatments. 2. Postobstructive pneumonia. He is on Mucomyst, Zosyn and breathing treatments. Seems to be doing well. 3. Lung mass. We are awaiting biopsy on Saturday. 4. Disposition. He may end up needing rehab. We will continue to follow and evaluate for issues.
[2016-08-12] MEDS: ATIVAN PO SCH (22:11)
[2016-08-12] MEDS: PROTONIX IV SCH (22:18)
[2016-08-12] MEDS: SODIUM CHLORIDE 0.9% INJ SCH (22:18)
[2016-08-13] MEDS: ATIVAN PO SCH ×4 (04:00→21:31)
[2016-08-13] MEDS: ZOSYN 3.375 GM/NS 50 ML IV SCH ×5 (04:31→21:32)
[2016-08-13] MEDS: DECADRON IV SCH ×5 (04:31→21:31)
[2016-08-13] MEDS: DUONEB (A & A) INH SCH ×6 (05:43→23:34)
[2016-08-13 06:45] LABS: HEMOGLOBIN 12.7 g/dL (14.0-18.0)
[2016-08-13 07:00] LABS: HEMATOCRIT 38.4 % (42.0-52.0); MCH 29.7 PG (27-31); MCHC 33.1 g/dL (33-37); MCV 89.9 FL (81-99); MPV 8.6 FL (7.4-10.4); RBC 4.27 XMIL (4.7-6.1)
[2016-08-13] MEDS: SYMBICORT 160/4.5 MICROGM INHALER INH SCH (07:26)
[2016-08-13] MEDS: MUCOMYST 20% INH SCH ×2 (07:26→20:17)
[2016-08-13] MEDS: KEPPRA PO SCH ×2 (09:31→20:40)
[2016-08-13] MEDS: NEXIUM PO SCH (09:31)
[2016-08-13] MEDS: PERCOCET-5 PO PRN ×2 (09:31→14:24)
--- NOTE | 2016-08-13 13:48 | PROGRESS NOTE ---
DATE: 08/13/2016 SUBJECTIVE: Patient reports mild pain in the abdominal area. As per family who is at bedside sometimes he become a little bit confused but overall, he is doing much better today. OBJECTIVE: Vital Signs: Temperature 98.3 degrees, heart rate 76, respiratory rate 16, blood pressure 156/57, O2 saturation 97% on 2 L nasal cannula. General: This is a chronically ill- looking and frail, 61-year-old male, lying in bed, in no acute distress. HEENT: Head is normocephalic, atraumatic. Anicteric sclerae and pale conjunctivae. Mucous membranes dry. Neck: Supple. No JVD noted. No carotid bruits. No lymphadenopathy. Cardiovascular: S1, S2 heard. No murmurs, gallops, rubs. Regular rate and rhythm. Respiratory: Clear bilaterally to auscultation. No work of breathing or using accessory muscles. Abdomen: Soft, nontender to palpation. Nondistended. Bowel sounds present. No organomegaly. Extremities: No clubbing, cyanosis, or edema. Peripheral pulses present in both legs. Neurological: Patient is alert and oriented x3. Able to move her extremities. Cranial nerves 2-12 grossly normal. LABORATORY DATA: White cell count 14.33, hemoglobin 12.7, hematocrit 38.4, platelets 430,000. No BMP from today. ASSESSMENT AND PLAN: 1. Brain metastasis from lung cancer. Patient currently is receiving steroids and also IV therapy. Patient has been evaluated by Dr. Tam. We will continue with the same management. 2. Postobstructive pneumonia. Patient is on Zosyn and DuoNeb and Mucomyst. We will continue with the same management. 3. Lung mass. The patient is going to get a biopsy on Saturday, tomorrow. 4. Deconditioning. Patient may need rehab facility at discharge. We are going to consult addiction social worker at the time
[2016-08-13] MEDS: DILAUDID IV PRN (18:19)
[2016-08-13] MEDS ORDERED: MUCOMYST 20% ONE (20:15)
[2016-08-13] MEDS ORDERED: SODIUM CHLORIDE 0.9% 10 ML ONE (20:38)
[2016-08-14] MEDS: SYMBICORT 160/4.5 MICROGM INHALER INH SCH ×2 (00:14→07:27)
[2016-08-14] MEDS: DUONEB (A & A) INH SCH ×3 (04:01→11:20)
[2016-08-14] MEDS: ZOSYN 3.375 GM/NS 50 ML IV SCH ×2 (04:06→09:19)
[2016-08-14] MEDS: DECADRON IV SCH ×2 (04:06→09:03)
[2016-08-14] MEDS: DILAUDID IV PRN (04:11)
[2016-08-14 06:37] LABS: MANUAL DIFF NEEDED? NO
[2016-08-14 06:43] LABS: BASO% 0.1 % (0.0-0.8); EOS# 0.03 X1000 (0.0-0.7); EOS% 0.2 % (0.0-10.0); HEMATOCRIT 38.4 % (42.0-52.0); HEMOGLOBIN 12.8 g/dL (14.0-18.0); IMM GRAN# 0.33 X1000 (0.0-0.04); IMM GRAN% 2.4 % (0.0-0.5); LYMPH% 5.8 % (20.5-51.1); MCH 29.3 PG (27-31); MCHC 33.3 g/dL (33-37); MCV 87.9 FL (81-99); MONO# 1.02 X1000 (0.11-0.59); MONO% 7.4 % (1.7-9.3); MPV 8.4 FL (7.4-10.4); NEUT% 84.1 % (42.2-75.2); PLT 438 X1000 (130-400); RBC 4.37 XMIL (4.7-6.1)
[2016-08-14 07:01] LABS: INR 1.04; PTT 23.7 Seconds (22.0-36.0)
[2016-08-14 07:18] LABS: AGAP 13; BUN 20 mg/dL (8-22); CALCIUM 8.7 mg/dL (8.8-10.2); CHLORIDE 95 mmol/L (98-107); COSMO 277; POTASSIUM 4.1 mmol/L (3.5-5.1); SODIUM 136 mmol/L (136-145); TCO2 28 mmol/L (25-35)
[2016-08-14] MEDS: MUCOMYST 20% INH SCH (07:27)
[2016-08-14 08:06] VITALS: BP 157/69
[2016-08-14] MEDS: ATIVAN PO SCH (09:03)
[2016-08-14] MEDS: NEXIUM PO SCH (09:03)
[2016-08-14] MEDS: KEPPRA PO SCH (09:03)
[2016-08-14] MEDS: PERCOCET-5 PO PRN (12:34)
--- NOTE | 2016-08-14 12:43 | DISCHARGE SUMMARY ---
ADMISSION DATE: 08/09/2016 DISCHARGE DATE: The patient admitted on 08/09. Please see H P. CONSULTATIONS: 1. Hematology oncology, Dr. Carli Giraldo. 2. Radiation oncology, Dr. Aga aTm. PROCEDURES: Radiation therapy to brain. HISTORY: Briefly, this is a 61-year-old white male with end-stage COPD, reported CHF, who came in with unsteady gait, change in vision, issues with tracking. I want to say that I feel like he had a right gaze preference actually. In any case, he had been seen on the and was diagnosed with what was felt to be CONSERVATION AGENT metastases at that time. Plan was for an outpatient workup. However, patient continued to clinically deteriorate. Mental status was worse. He had multiple subtle mass lesions with subtle ring enhancement and associated edema. MRI showed multiple peripherally enhancing masses bilaterally, more numerous on the right, with a 5-6 mm shift right to left. He did have a lung lesion, so it was felt that these were initially very high risk to be metastatic lesions to his brain. He had a persistent infiltrate. Because of the holiday weekend there was a delay in getting his CT guided biopsy. He was initially seen at [place] and then transferred to [facility] for XRT. The patient did have weakness. Fluid Pump Operator were okay, but he was having difficulty ambulating and having issues from that standpoint. Dr. Giraldo evaluated the patient as well as covering physician for Dr. Tam, who I think was Dr. Nagy. He had a persistent right lower lobe infiltrate. We were concerned about a primary lung tumor. I reviewed this CT scan with pulmonary, recommended a CT-guided biopsy versus bone scan, but at this time we were fairly convinced that this was initially a lung cancer with CONSERVATION AGENT metastases. His CT of abdomen and pelvis revealed a 2.3 cm perihilar mass with mucous plugging and bronchopneumonia in the right lower lobe. CT of the abdomen was unremarkable. Bone scan was unremarkable. CEA level was unremarkable. Consult from radiation felt that we needed to transfer him emergently because he was clinically deteriorating, mental status was worse. We were afraid that he was going to further decompensate and then be unable for treatment. I did review the scans with Radiation Oncology. They felt there was concern over meningeal involvement of the tumors. He had multiple large enhancing masses. The largest was in the right occipital lobe, 5 cm with moderate edema, and he had been on steroids as an outpatient, but did not clinically improve. We upped his steroids while he was here. Dr. Giraldo did, the oncologist, and he started getting radiation treatment on the or , and he had another treatment on the , and apparently he has had another treatment today on the . Patient has clinically improved. His initial white count was 26,000, difficult to interpret in the setting of being on high dose Decadron, but has come down the 13.8, but his neurological status, mental status started to improve, I want to say on the . He was awake, alert, oriented. Plan was for CT-guided biopsy. As far as pneumonia that has also clinically improved as far as his pulmonary exam. On the Dr. Martino, radiation radiologist, was to evaluate. He reviewed the CT and MRI and felt that this was more consistent with pneumonia and subsequently was also concerned over brain abscesses. Based on the pattern of imaging, he felt that they were hypercellular and not a focal solid lesion. At this point there is concern that these are, indeed, brain abscesses versus other. Blood culture was obtained prior to discharge, but had not been obtained previously and has been no growth. Patient had been placed on Zosyn. He had been on this since the , so it is difficult to assess if this is not what is improving his mental status, if it is indeed a brain abscess versus other. He has been on high dose steroids as well, which probably has assisted with the edema. I discussed the case with Dr. Cotto at [facility] and Dr. Larsen, hospitalist, and we are planning to transfer him for brain biopsy and further management. We will follow up on lung biopsy here and see what is going on from that standpoint. I will communicate with Dr. Larsen or hospitalist team at that point. CURRENT MEDICATIONS: He is on Dilaudid p.r.n., Zofran, Neurontin, Symbicort, AA nebs q.4, Keppra 500 mg b.i.d. as prophylaxis, Zosyn 3.375 mg q.6h, Mucomyst b.i.d., dexamethasone 20 mg q.6h, Ativan 0.5 b.i.d. which was just started a couple of days ago. DISCHARGE CONDITION: Stable. He will be transferred and further management will be per their service. TIME SPENT: A 32 minute discharge.
== END 2016-08-14 12:52 | disposition short-term general hospital (02) | DRG 94 ==
LOC: P.ED 10:33 → P.MEDSURG 13:38 → OBSVTOIN 13:38 → 3N 08-10 15:54
PROVIDERS: ATTEND Internal Medicine
DX: G06.0 Intracranial abscess and granuloma (principal); G93.6 Cerebral edema; I11.0 Hypertensive heart disease with heart failure; C79.32 Secondary malignant neoplasm of cerebral meninges; J18.0 Bronchopneumonia, unspecified organism; I50.9 Heart failure, unspecified; C34.91 Malignant neoplasm of unspecified part of right bronchus or lung; J44.0 Chronic obstructive pulmonary disease with (acute) lower respiratory infection; I25.10 Atherosclerotic heart disease of native coronary artery without angina pectoris; E78.5 Hyperlipidemia, unspecified; K21.9 Gastro-esophageal reflux disease without esophagitis; F17.210 Nicotine dependence, cigarettes, uncomplicated; Z79.899 Other long term (current) drug therapy; Z99.81 Dependence on supplemental oxygen; Z80.1 Family history of malignant neoplasm of trachea, bronchus and lung
CPT/HCPCS: 36415; 70470; 70553; 71010; 71260; 74177; 78306; 80048; 80053; 81001; 82378; 85025; 85027; 85610; 85730; 87040; 94640; 94761; 96365; 96366; 96367; 96375; A9503; A9579; C9113; J1100; J1170; J1580; J2405; J2543; J3370; J7030; Q9967; S0164